=== PATIENT | male | born 1965 | race Caucasian/White ===

== ENCOUNTER 2017-09-27 15:25 | Inpatient (IN) | payer OTHER ==
[2017-09-27 19:51] VITALS: BMI 21.1
--- NOTE | 2017-09-27 20:40 | HP ---
COWS - Scale Resting Pulse: 1= [place] 81-100 Sweatin=Flushed/Facial Moisture Restless Observation: 1= Difficult to Sit Still Pupil Size: 1= Pupils >than Normal Bone or Joint Aches: 2= Severe Diffuse Aches Runny Nose/ Eye Tearin= Runny Nose/Eyes GI Upset > 30mins: 1= Stomach Cramp Tremor Observation: 2= Slight Tremor Visible Yawning Observation: 1= 1-2x During Session Anxiety or Irritability: 2=Irritable/Anxious Goose Flesh Skin: 0=Smooth Skin COWS Score: 15 CIWA Score - CIWA Score Nausea/Vomitin-No Nausea/No Vomiting Muscle Tremors: 4-Moderate,w/Arms Extend Anxiety: 4-Mod. Anxious/Guarded Agitation: 4-Moderately Restless Paroxysmal Sweats: No Perspiration Orientation: 0-Oriented Tacttile Disturbances: 0-None Auditory Disturbances: 0-None Visual Disturbances: 0-None Headache: 2-Mild CIWA-Ar Total Score: 14 Admission ROS S - HPI Chief Complaint: Alcohol and heroin withdrawal symptoms Allergies/Adverse Reactions: Allergies Allergy/AdvReac Type Severity Reaction Status Date / Time No Known Allergies Allergy Verified 09/27/17 19:29 History of Present Illness: 52 years old male with a long history of alcohol and heroin dependence is seeking admission to detox. Patient has been in previous detox at [facility] and reports 3 years of sobriety. This is his first admission to [facility]. He denies past medical history and suicidal ideation at this time. Exam Limitations: No Limitations - Ebola screening Have you traveled outside of the country in the last 21 days: No Have you had contact with anyone from an Ebola affected area: No Have you been sick,other than usual withdrawal symptoms: No Do you have a fever: No - Review of Systems Constitutional: Loss of Appetite, Malaise, Night Sweats, Changes in sleep, Unexplained wgt Loss (reports 50 lbs weight loss) EENT: reports: Nose Congestion, Sinus Pressure Respiratory: reports: No Symptoms reported Cardiac: reports: No Symptoms Reported GI: reports: Poor Appetite, Poor Fluid Intake, Abdominal cramping : reports: No Symptoms Reported Musculoskeletal: reports: Joint Pain, Muscle Pain Integumentary: reports: Dryness Neuro: reports: Tingling, Tremors Endocrine: reports: Flushing Hematology: reports: No Symptoms Reported Psychiatric: reports: Mood/Affect Appropiate, Orientated x3, Agitated, Anxious Other Systems: Reviewed and Negative Patient History - Patient Medical History Hx Anemia: No Hx Asthma: No Hx Chronic Obstructive Pulmonary Disease (COPD): No Hx Cancer: No Hx Cardiac Disorders: No Hx Congestive Heart Failure: No Hx Hypertension: No Hx Hypercholesterolemia: No HX Cerebrovascular Accident: No Hx Seizures: No Hx Diabetes: No Hx Gastrointestinal Disorders: No Hx Liver Disease: No Hx Genitourinary Disorders: No Hx Sexually Transmitted Disorders: No Hx Renal Disease (ESRD): No Hx Thyroid Disease: No Hx Human Immunodeficiency Virus (HIV): No Hx Hepatitis C: No Hx Depression: No Hx Suicide Attempt: No (Denies suicidal ideation at this time) Hx Bipolar Disorder: No Hx Schizophrenia: No - Patient Surgical History Past Surgical History: No Hx Neurologic Surgery: No Hx Cataract Extraction: No Hx Cardiac Surgery: No Hx Lung Surgery: No Hx Abdominal Surgery: No Hx Appendectomy: No Hx Cholecystectomy: No Hx Genitourinary Surgery: No Hx Orthopedic Surgery: No Anesthesia Reaction: No - PPD History Previous Implant?: Yes Documented Results: Negative w/o proof Implanted On Prior R Admission?: No PPD to be Administered?: Yes - Reproductive History Patient is a Female of Child Bearing Age (11 -55 yrs old): No (MALE) - Smoking Cessation Smoking history: Current every day smoker Have you smoked in the past 12 months: Yes Aproximately how many cigarettes per day: 20 Hx Chewing Tobacco Use: No Initiated information on smoking cessation: Yes 'Breaking Loose' booklet given: 09/27/17 - Substance & Tx. History Hx Alcohol Use: Yes Hx Substance Use: Yes Substance Use Type: Alcohol, Cocaine, Heroin Hx Substance Use Treatment: Yes ([facility]) - Substances Abused Alcohol Route: Oral Frequency: Daily Amount used: LIQUOR- 1 PINT, BEER- 1 SIX PACK Age of first use: 10 Date of Last Use: 09/27/17 Heroin Route: Injection Frequency: Daily Amount used: 10 BAGS Age of first use: 38 Date of Last Use: 09/27/17 Family Disease History - Family Disease History Family Disease History: CA: Father (Lung Ca- ) Admission Physical Exam BHS - Vital Signs Vital Signs: Vital Signs - 24 hr 09/27/17 16:57 Temperature 97.9 F Pulse Rate 81 Respiratory 18 Rate Blood Pressure 111/60 - Physical General Appearance: Yes: Moderate Distress HEENTM: Yes: EOMI, Normocephalic, Normal Voice, NAGA, Other (Full upper dentures and partial lower dentures) Respiratory: Yes: Lungs Clear, Normal Breath Sounds, No Respiratory Distress Neck: Yes: Supple Breast: Yes: Breast Exam Deferred Cardiology: Yes: Regular Rhythm, Regular Rate, S1, S2 Abdominal: Yes: Normal Bowel Sounds, Soft Genitourinary: Yes: Within Normal Limits Back: Yes: Normal Inspection Musculoskeletal: Yes: Muscle Pain Extremities: Yes: Tremors Neurological: Yes: Alert, Normal Mood/Affect, Normal Response Integumentary: Yes: Dry Lymphatic: Yes: Within Normal Limits - Diagnostic (1) Opioid dependence with withdrawal Current Visit: Yes Status: Chronic (2) Alcohol dependence with uncomplicated withdrawal Current Visit: Yes Status: Chronic (3) Nicotine dependence Current Visit: Yes Status: Chronic (4) Cocaine dependence, uncomplicated Current Visit: Yes Status: Chronic Cleared for Admission [facility] - Detox or Rehab [facility] Level of Care: Medically Managed Detox Regimen/Protocol: Methadone/Librium [facility] Breath Alcohol Content Breath Alcohol Content: 0 Urine Drug Screen - Results Drug Screen Negative: No Urine Drug Screen Results: GILA-Cocaine, OPI-Opiates, BZO-Benzodiazepines, MTD- Methadone
[2017-09-27] MEDS ORDERED: MAGNESIUM CITRATE 300 ML BOTTLE PO PRN (20:51)
[2017-09-27] MEDS ORDERED: LOPERAMIDE HCL 2 MG CAPSULE PO PRN (20:51)
[2017-09-27] MEDS ORDERED: MAG HYDROX/AL HYDROX/SIMETH 30 ML UNIT-DOSE CUP PO PRN (20:51)
[2017-09-27] MEDS ORDERED: MAGNESIUM HYDROX 2400MG/30ML ORAL SUSPENSION 30 ML CUP PO PRN (20:51)
[2017-09-27] MEDS ORDERED: P-EPHED 60MG/TRIPROLIDI 2.5MG TABLET PO PRN (20:51)
[2017-09-27] MEDS ORDERED: IBUPROFEN 400 MG TABLET (FP) PO PRN (20:51)
[2017-09-27] MEDS ORDERED: MENTHOL/PHENOL 1 EACH UD MM PRN (20:51)
[2017-09-27] MEDS ORDERED: NICOTINE POLACRILEX 2 MG GUM BC PRN (20:51)
[2017-09-27] MEDS ORDERED: METHADONE HCL 10 MG TABLET (FOR DETOX USE ONLY) PO ONE ×2 (20:51→23:00)
[2017-09-27] MEDS ORDERED: chlordiazePOXIDE HCL 25 MG CAPSULE PO PRN (20:51)
[2017-09-27] MEDS ORDERED: ACETAMINOPHEN 325 MG TABLET (FP) PO PRN (20:51)
[2017-09-27] MEDS ORDERED: guaiFENesin/D-METHORPHAN HB 10 ML UNIT-DOSE CUPS PO PRN (20:51)
[2017-09-27] MEDS: chlordiazePOXIDE HCL 25 MG CAPSULE PO SCH (22:32)
[2017-09-27] MEDS: THIAMINE HCL 100 MG TABLET (FP) PO SCH (22:39)
[2017-09-27 23:21] LABS: URINE APPEARANCE SLCLOUDY; URINE BILIRUBIN NEGATIVE (NEGATIVE); URINE BLOOD NEGATIVE (NEGATIVE); URINE COLOR AMBER; URINE GLUCOSE (UA) NEGATIVE (NEGATIVE); URINE KETONE TRACE (NEGATIVE); URINE LEUK ESTERASE NEGATIVE (NEGATIVE); URINE NITRITE NEGATIVE (NEGATIVE)
[2017-09-27 23:34] LABS: URINE PROTEIN 1+ (NEGATIVE)
[2017-09-27 23:36] LABS: EPI CELLS RARE /HPF (FEW); URINE HYALINE CAST 4 /lpf; URINE MUCUS FEW
[2017-09-28] MEDS: chlordiazePOXIDE HCL 25 MG CAPSULE PO SCH ×4 (05:11→22:23)
--- NOTE | 2017-09-28 08:54 | PN ---
[facility] CIWA - CIWA Score Nausea/Vomitin-Mild Nausea/No Vomiting Muscle Tremors: 3 Anxiety: 3 Agitation: 3 Paroxysmal Sweats: 1-Minimal Palms Moist Orientation: 0-Oriented Tacttile Disturbances: 0-None Auditory Disturbances: 0-None Visual Disturbances: 0-None Headache: 1-Very Mild CIWA-Ar Total Score: 12 BHS COWS - Scale Resting Pulse: 0= RI 80 or Below Sweatin= Chills/Flushing Restless Observation: 1= Difficult to Sit Still Pupil Size: 0= Normal to Room Light Bone or Joint Aches: 2= Severe Diffuse Aches Runny Nose/ Eye Tearin= Runny Nose/Eyes GI Upset > 30mins: 2= Nausea/Diarrhea Tremor Observation of Outstretched Hands: 2= Slight Tremor Visible Yawning Observation: 0= None Anxiety or Irritability: 2=Irritable/Anxious Goose Flesh Skin: 0=Smooth Skin COWS Score: 12 S Progress Note (SOAP) Subjective: tremor sweat anxiety irritable agitation GI distress Objective: 09/28/17 08:54 Vital Signs Temperature 97.9 F 09/28/17 06:00 Pulse Rate 60 09/28/17 06:00 Respiratory Rate 16 09/28/17 06:00 Blood Pressure 107/53 09/28/17 06:00 O2 Sat by Pulse Oximetry (%) Laboratory Last Values Urine Color [place] 09/27/17 23:05 Urine Appearance Slcloudy 09/27/17 23:05 Urine pH 5.0 (5.0-8.0) 09/27/17 23:05 Ur Specific [place] 1.029 (1.001-1.035) 09/27/17 23:05 Urine Protein 1+ (NEGATIVE) H 09/27/17 23:05 Urine Glucose (UA) Negative (NEGATIVE) 09/27/17 23:05 Urine Ketones Trace (NEGATIVE) H 09/27/17 23:05 Urine Blood Negative (NEGATIVE) 09/27/17 23:05 Urine Nitrite Negative (NEGATIVE) 09/27/17 23:05 Urine Bilirubin Negative (NEGATIVE) 09/27/17 23:05 Urine Urobilinogen 2.0 mg/dL (0.2-1.0) 09/27/17 23:05 Ur Leukocyte Esterase Negative (NEGATIVE) 09/27/17 23:05 Urine WBC (Auto) 2 /hpf (3-5) 09/27/17 23:05 Urine RBC (Auto) 1 /hpf (0-3) 09/27/17 23:05 Ur Epithelial Cells Rare /HPF (FEW) 09/27/17 23:05 Hyaline Casts 4 /lpf 09/27/17 23:05 Urine Mucus Few 09/27/17 23:05 lab noted Assessment: 09/28/17 08:54 withdrawal sx Plan: continue detox
[2017-09-28] MEDS ORDERED: METHADONE HCL 10 MG TABLET (FOR DETOX USE ONLY) PO SCH (10:00)
[2017-09-28] MEDS: NICOTINE 14 MG/24 HOURS TOPICAL PATCH TD SCH (10:16)
[2017-09-28] MEDS: PRENATAL VITAMINS W/ FOLIC ACID TABLET (FP) PO SCH (10:16)
[2017-09-28 10:23] LABS: HEMATOCRIT 36.4 % (35.4-49); HEMOGLOBIN 11.8 GM/dL (11.7-16.9); MCH 29.5 pg (25.7-33.7); MCHC 32.5 g/dl (32.0-35.9); MEAN PLT VOLUME 8.6 fl (7.5-11.1); PLATELET COUNT 331 K/MM3 (134-434); RDW 15.1 % (11.9-15.9); WHITE BLOOD COUNT 8.2 K/mm3 (4.0-10.0)
[2017-09-28 10:27] LABS: CHLORIDE 104 mmol/L (98-107); POTASSIUM 4.3 mmol/L (3.5-5.1); SODIUM 140 mmol/L (136-145)
[2017-09-28 10:37] LABS: ALK PHOS 61 U/L (45-117); ANION GAP 6 (8-16); BILIRUBIN,TOTAL 0.3 mg/dL (0.2-1.0); BLOOD UREA NITROGEN 12 mg/dL (7-18); CALCIUM 8.3 mg/dL (8.5-10.1); CO2 30 mmol/L (21-32); CREATININE 0.6 mg/dL (0.7-1.3); GLUCOSE,RANDOM 61 mg/dL (74-106); SGOT/AST 11 U/L (15-37); SGPT/ALT 17 U/L (12-78); TOT PROT 6.1 g/dl (6.4-8.2)
[2017-09-28] MEDS ORDERED: diphenhydrAMINE HCL 50 MG CAPSULE PO ONE (17:45)
[2017-09-28] MEDS: THIAMINE HCL 100 MG TABLET (FP) PO SCH (22:23)
[2017-09-29] MEDS: chlordiazePOXIDE HCL 25 MG CAPSULE PO SCH ×3 (05:12→16:52)
[2017-09-29] MEDS: PRENATAL VITAMINS W/ FOLIC ACID TABLET (FP) PO SCH (10:07)
[2017-09-29] MEDS: METHADONE HCL 5 MG TABLET (FOR DETOX USE ONLY) PO SCH (10:07)
[2017-09-29] MEDS: NICOTINE 14 MG/24 HOURS TOPICAL PATCH TD SCH (10:07)
--- NOTE | 2017-09-29 10:30 | PN ---
[facility] CIWA - CIWA Score Nausea/Vomitin-No Nausea/No Vomiting Muscle Tremors: 3 Anxiety: 3 Agitation: 2 Paroxysmal Sweats: 1-Minimal Palms Moist Orientation: 0-Oriented Tacttile Disturbances: 0-None Auditory Disturbances: 0-None Visual Disturbances: 0-None Headache: 0-None Present CIWA-Ar Total Score: 9 BHS COWS - Scale Resting Pulse: 1= [place] 81-100 Sweatin= Chills/Flushing Restless Observation: 1= Difficult to Sit Still Pupil Size: 0= Normal to Room Light Bone or Joint Aches: 2= Severe Diffuse Aches Runny Nose/ Eye Tearin= Nasal Congestion GI Upset > 30mins: 1= Stomach Cramp Tremor Observation of Outstretched Hands: 1= Tremor [place], Not Seen Yawning Observation: 0= None Anxiety or Irritability: 1=Feels Anxious/Irritable Goose Flesh Skin: 0=Smooth Skin COWS Score: 9 S Progress Note (SOAP) Subjective: joint aches sweat anxiety tremor irritable Objective: 09/29/17 10:29 Vital Signs Temperature 97.1 F L 09/29/17 10:03 Pulse Rate 93 H 09/29/17 10:03 Respiratory Rate 18 09/29/17 10:03 Blood Pressure 142/79 09/29/17 10:03 O2 Sat by Pulse Oximetry (%) Laboratory Last Values WBC 8.2 K/mm3 (4.0-10.0) 09/28/17 07:00 RBC 4.00 M/mm3 (4.00-5.60) 09/28/17 07:00 Hgb 11.8 GM/dL (11.7-16.9) 09/28/17 07:00 Hct 36.4 % (35.4-49) 09/28/17 07:00 MCV 91.0 fl (80-96) 09/28/17 07:00 MCH 29.5 pg (25.7-33.7) 09/28/17 07:00 MCHC 32.5 g/dl (32.0-35.9) 09/28/17 07:00 RDW 15.1 % (11.9-15.9) 09/28/17 07:00 Plt Count 331 K/MM3 (134-434) 09/28/17 07:00 MPV 8.6 fl (7.5-11.1) 09/28/17 07:00 Sodium 140 mmol/L (136-145) 09/28/17 07:00 Potassium 4.3 mmol/L (3.5-5.1) 09/28/17 07:00 Chloride 104 mmol/L (98-107) 09/28/17 07:00 Carbon Dioxide 30 mmol/L (21-32) 09/28/17 07:00 Anion Gap 6 (8-16) L 09/28/17 07:00 BUN 12 mg/dL (7-18) 09/28/17 07:00 Creatinine 0.6 mg/dL (0.7-1.3) L 09/28/17 07:00 Creat Clearance w eGFR > 60 (>60) 09/28/17 07:00 Random Glucose 61 mg/dL (74-106) L 09/28/17 07:00 Calcium 8.3 mg/dL (8.5-10.1) L 09/28/17 07:00 Total Bilirubin 0.3 mg/dL (0.2-1.0) 09/28/17 07:00 AST 11 U/L (15-37) L 09/28/17 07:00 ALT 17 U/L (12-78) 09/28/17 07:00 Alkaline Phosphatase 61 U/L (45-117) 09/28/17 07:00 Total Protein 6.1 g/dl (6.4-8.2) L 09/28/17 07:00 Albumin 3.0 g/dl (3.4-5.0) L 09/28/17 07:00 Urine Color [place] 09/27/17 23:05 Urine Appearance Slcloudy 09/27/17 23:05 Urine pH 5.0 (5.0-8.0) 09/27/17 23:05 Ur Specific [place] 1.029 (1.001-1.035) 09/27/17 23:05 Urine Protein 1+ (NEGATIVE) H 09/27/17 23:05 Urine Glucose (UA) Negative (NEGATIVE) 09/27/17 23:05 Urine Ketones Trace (NEGATIVE) H 09/27/17 23:05 Urine Blood Negative (NEGATIVE) 09/27/17 23:05 Urine Nitrite Negative (NEGATIVE) 09/27/17 23:05 Urine Bilirubin Negative (NEGATIVE) 09/27/17 23:05 Urine Urobilinogen 2.0 mg/dL (0.2-1.0) 09/27/17 23:05 Ur Leukocyte Esterase Negative (NEGATIVE) 09/27/17 23:05 Urine WBC (Auto) 2 /hpf (3-5) 09/27/17 23:05 Urine RBC (Auto) 1 /hpf (0-3) 09/27/17 23:05 Ur Epithelial Cells Rare /HPF (FEW) 09/27/17 23:05 Hyaline Casts 4 /lpf 09/27/17 23:05 Urine Mucus Few 09/27/17 23:05 RPR Titer Nonreactive (NONREACTIVE) 09/28/17 07:00 Hepatitis C Antibody <0.1 s/co ratio (0.0-0.9) 09/27/17 07:00 HIV 1&2 Antibody Screen Negative 09/28/17 07:00 HIV P24 Antigen Negative 09/28/17 07:00 lab noted Assessment: 09/29/17 10:30 withdrawal sx Plan: continue detox
--- NOTE | 2017-09-29 10:56 | EKG ---
Test Reason : Blood Pressure : / mmHG Vent. Rate : 059 BPM Atrial Rate : 059 BPM P-R Int : 146 ms QRS Dur : 094 ms QT Int : 440 ms P-R-T Axes : 058 072 068 degrees QTc Int : 435 ms SINUS BRADYCARDIA OTHERWISE NORMAL ECG NO PREVIOUS ECGS AVAILABLE Confirmed by MYA JEWELL, ASHA ([id number] on 09/29/2017 10:55:56 AM Referred By: Confirmed By:ASHA ROQUE MD
[2017-09-29] MEDS: THIAMINE HCL 100 MG TABLET (FP) PO SCH (22:47)
[2017-09-29] MEDS: chlordiazePOXIDE 5 MG CAPSULE PO SCH (22:47)
[2017-09-29] MEDS: hydrOXYzine PAMOATE 50 MG CAPSULE (FP) PO PRN (23:06)
[2017-09-30] MEDS: chlordiazePOXIDE 5 MG CAPSULE PO SCH ×3 (05:44→17:24)
[2017-09-30] MEDS: METHADONE HCL 5 MG TABLET (FOR DETOX USE ONLY) PO SCH (10:05)
[2017-09-30] MEDS: PRENATAL VITAMINS W/ FOLIC ACID TABLET (FP) PO SCH (10:05)
[2017-09-30] MEDS: NICOTINE 14 MG/24 HOURS TOPICAL PATCH TD SCH (10:06)
--- NOTE | 2017-09-30 10:32 | PN ---
BHS Progress Note (SOAP) Subjective: mild withdrawal sx mild sweat calm alert oriented x 3 wants to return to community 10/01/17 agrees to follow up aftercare Objective: 09/30/17 10:31 Vital Signs Temperature 97.1 F L 09/30/17 10:13 Pulse Rate 78 09/30/17 10:13 Respiratory Rate 18 09/30/17 10:13 Blood Pressure 139/81 09/30/17 10:13 O2 Sat by Pulse Oximetry (%) Laboratory Last Values WBC 8.2 K/mm3 (4.0-10.0) 09/28/17 07:00 RBC 4.00 M/mm3 (4.00-5.60) 09/28/17 07:00 Hgb 11.8 GM/dL (11.7-16.9) 09/28/17 07:00 Hct 36.4 % (35.4-49) 09/28/17 07:00 MCV 91.0 fl (80-96) 09/28/17 07:00 MCH 29.5 pg (25.7-33.7) 09/28/17 07:00 MCHC 32.5 g/dl (32.0-35.9) 09/28/17 07:00 RDW 15.1 % (11.9-15.9) 09/28/17 07:00 Plt Count 331 K/MM3 (134-434) 09/28/17 07:00 MPV 8.6 fl (7.5-11.1) 09/28/17 07:00 Sodium 140 mmol/L (136-145) 09/28/17 07:00 Potassium 4.3 mmol/L (3.5-5.1) 09/28/17 07:00 Chloride 104 mmol/L (98-107) 09/28/17 07:00 Carbon Dioxide 30 mmol/L (21-32) 09/28/17 07:00 Anion Gap 6 (8-16) L 09/28/17 07:00 BUN 12 mg/dL (7-18) 09/28/17 07:00 Creatinine 0.6 mg/dL (0.7-1.3) L 09/28/17 07:00 Creat Clearance w eGFR > 60 (>60) 09/28/17 07:00 Random Glucose 61 mg/dL (74-106) L 09/28/17 07:00 Calcium 8.3 mg/dL (8.5-10.1) L 09/28/17 07:00 Total Bilirubin 0.3 mg/dL (0.2-1.0) 09/28/17 07:00 AST 11 U/L (15-37) L 09/28/17 07:00 ALT 17 U/L (12-78) 09/28/17 07:00 Alkaline Phosphatase 61 U/L (45-117) 09/28/17 07:00 Total Protein 6.1 g/dl (6.4-8.2) L 09/28/17 07:00 Albumin 3.0 g/dl (3.4-5.0) L 09/28/17 07:00 Urine Color [place] 09/27/17 23:05 Urine Appearance Slcloudy 09/27/17 23:05 Urine pH 5.0 (5.0-8.0) 09/27/17 23:05 Ur Specific [place] 1.029 (1.001-1.035) 09/27/17 23:05 Urine Protein 1+ (NEGATIVE) H 09/27/17 23:05 Urine Glucose (UA) Negative (NEGATIVE) 09/27/17 23:05 Urine Ketones Trace (NEGATIVE) H 09/27/17 23:05 Urine Blood Negative (NEGATIVE) 09/27/17 23:05 Urine Nitrite Negative (NEGATIVE) 09/27/17 23:05 Urine Bilirubin Negative (NEGATIVE) 09/27/17 23:05 Urine Urobilinogen 2.0 mg/dL (0.2-1.0) 09/27/17 23:05 Ur Leukocyte Esterase Negative (NEGATIVE) 09/27/17 23:05 Urine WBC (Auto) 2 /hpf (3-5) 09/27/17 23:05 Urine RBC (Auto) 1 /hpf (0-3) 09/27/17 23:05 Ur Epithelial Cells Rare /HPF (FEW) 09/27/17 23: Hyaline Casts 4 /lpf 09/27/17 23:05 Urine Mucus Few 09/27/17 23:05 RPR Titer Nonreactive (NONREACTIVE) 09/28/17 07:00 Hepatitis C Antibody <0.1 s/co ratio (0.0-0.9) 09/27/17 07:00 HIV 1&2 Antibody Screen Negative 09/28/17 07:00 HIV P24 Antigen Negative 09/28/17 07:00 lab noted Assessment: 09/30/17 10:32 mild withdrawal sx possible discharge 10/01/17 09/30/17 10:33 Plan: medically supervised detox re evaluate 10/01/17 am for possible discharge
[2017-09-30] MEDS: THIAMINE HCL 100 MG TABLET (FP) PO SCH (22:45)
[2017-09-30] MEDS: chlordiazePOXIDE HCL 10 MG CAPSULE PO SCH (22:45)
[2017-09-30] MEDS: hydrOXYzine PAMOATE 50 MG CAPSULE (FP) PO PRN (22:45)
[2017-10-01] MEDS: chlordiazePOXIDE HCL 10 MG CAPSULE PO SCH (05:53)
[2017-10-01] MEDS ORDERED: METHADONE HCL 5 MG TABLET (FOR DETOX USE ONLY) PO ONE (06:00)
[2017-10-01 06:08] VITALS: BP 97/68; PULSE 55; TEMP 97.5
--- NOTE | 2017-10-01 08:38 | DS ---
[facility] Detox Discharge Summary Admission Date: 09/27/17 Discharge Date: 10/01/17 - History Present History: Alcohol Dependence, Cocaine Dependence, Opioid Dependence - Physical Exam Results Vital Signs: Vital Signs Temperature 97.5 F L 10/01/17 06:07 Pulse Rate 55 L 10/01/17 06:07 Respiratory Rate 16 10/01/17 06:07 Blood Pressure 97/68 10/01/17 06:07 O2 Sat by Pulse Oximetry (%) - Treatment Hospital Course: Detox Protocol Followed, Detoxed Safely, Responded well, Discharged Condition Good, Rehab Referral Accepted - Medication Discharge Medications: Ambulatory Orders NK [No Known Home Medication] 09/27/17 - Diagnosis (1) Alcohol dependence with uncomplicated withdrawal Current Visit: Yes Status: Chronic (2) Cocaine dependence, uncomplicated Current Visit: Yes Status: Chronic (3) Nicotine dependence Current Visit: Yes Status: Chronic Qualifiers: Nicotine product type: cigarettes Substance use status: uncomplicated Qualified Code(s): F17.210 - Nicotine dependence, cigarettes, uncomplicated (4) Opioid dependence with withdrawal Current Visit: Yes Status: Chronic - AMA Did Patient Leave Against Medical Advice: No
[2017-10-01] MEDS ORDERED: METHADONE HCL 10 MG TABLET (FOR DETOX USE ONLY) PO SCH (10:00)
[2017-10-02] MEDS ORDERED: METHADONE HCL 5 MG TABLET (FOR DETOX USE ONLY) PO SCH (06:00)
== END 2017-10-01 09:07 | disposition home or self-care (01) | DRG 773 ==
LOC: YASAS 15:25 → Y6N 21:41
PROVIDERS: ADMIT Internal Medicine; ATTEND Internal Medicine
PROC: HZ2ZZZZ Detoxification Services for Substance Abuse Treatment (ICD-10-PCS; principal; 2017-09-27)
DX: F11.23 Opioid dependence with withdrawal (principal); F10.230 Alcohol dependence with withdrawal, uncomplicated; F14.20 Cocaine dependence, uncomplicated; F17.210 Nicotine dependence, cigarettes, uncomplicated
CPT/HCPCS: 36415; 80053; 81003; 81015; 85027; 86593; 86803; 87389; 93005; 93010